=== PATIENT | female | born 2000 | race Two or more races ===

== ENCOUNTER 2020-05-16 15:20 | Emergency (ER) | payer OTHER ==
[~2020-05-16] VITALS: Ht 157.5 cm; Wt 56.7 kg
--- NOTE | 2020-05-16 15:35 | NUR ---
patient came in to the er c/o sorethroat, cough, fever, headache, and sob x 2 days, 99% on room air, breathing evenly and unlabored. connected to the monitor and pulse ox, kept comfortable, will continue to monitor accordingly.
--- NOTE | 2020-05-16 15:45 | NUR ---
XRAY AT BEDSIDE
--- NOTE | 2020-05-16 16:00 | NUR ---
covid 19 swab collected and sent to lab
[2020-05-16] MEDS ORDERED: AZITHROMYCIN 250 MG TABLET ONE (16:38)
--- NOTE | 2020-05-16 16:44 | NUR ---
Patient discharged to home in stable condition. Written and verbal after care instructions given. Patient verbalizes understanding of instruction. Pt ambulatory with a steady gait
[2020-05-16 16:47] VITALS: BP 124/63
[2020-05-16] MEDS ORDERED: AZITHROMYCIN 250 MG TABLET PO ONE (17:00)
== END 2020-05-16 16:48 | disposition home or self-care (01) ==
LOC: ER 15:26
DX: J18.9 Pneumonia, unspecified organism (principal); R51 Headache; Z20.828 Contact with and (suspected) exposure to other viral communicable diseases
CPT/HCPCS: 71045; 99284; C9803; U0003

== ENCOUNTER 2022-07-15 11:58 | Emergency (ER) | payer OTHER ==
[~2022-07-15] VITALS: Ht 157.5 cm; Wt 59.0 kg
[2022-07-15 11:58] VITALS: BP 96/61
--- NOTE | 2022-07-15 12:30 | NUR ---
PT SEEN BY DR CROWE
[2022-07-15] MEDS ORDERED: ERYT3.5O9 RIGHTEYE (12:43)
--- NOTE | 2022-07-15 12:47 | NUR ---
Patient discharged to home in stable condition. Written and verbal after care instructions given. Patient verbalizes understanding of instruction.
== END 2022-07-15 12:48 | disposition home or self-care (01) ==
LOC: ER 11:58
DX: H00.011 Hordeolum externum right upper eyelid (principal)